=== PATIENT | female | born 1930 | race Caucasian/White ===

== ENCOUNTER 2017-12-23 16:47 | Emergency (ER) | payer MEDICARE, BC ==
[2017-12-23 17:06] VITALS: BP 150/79
--- NOTE | 2017-12-23 17:26 | UC ---
UC General HPI - HPI Summary HPI Summary: elevated blood pressure x 2 day not feeling well, no cough , no nasal congestion , + headaches no n/v/d/c , no urinary sx pt is anxious about the elevation of her bp - History of Current Complaint Chief Complaint: UCGeneralIllness Stated Complaint: HIGH BP,CHILLS Time Seen by Provider: 12/23/17 17:03 Hx Obtained From: Patient Onset/Duration: Gradual Onset, Lasting Days - 2, Still Present Timing: Constant Onset Severity: Moderate Current Severity: Moderate Associated Signs & Symptoms: Positive: Headache, Palpitations, Weakness. Negative: Agitation, Abdominal Pain, Anticoagulation Therapy, Back Pain, Confusion, Cough, Chest Pain, Decreased Responsiveness, Dizziness, Diarrhea, Dysuria, Decreased Oral Intake, Diaphoresis, Edema, Fever, Hematemesis, Hemoptysis, Immunocompromised, In-Dwelling Medication Device, Melena, Nausea, Recent Medication Changes, Syncope, SOB, Trauma, Vomiting, Wheezing - Allergy/Home Medications Home Medications: Home Medications Aspirin TAB* [Aspirin 325 MG TAB*] 325 mg PO ONCE 12/23/17 [History Confirmed ] Aspirin [Aspirin 81 MG TAB] 81 mg PO BEDTIME 12/23/17 [History Confirmed ] Atenolol TAB* [Tenormin TAB* 25 MG] 12.5 mg PO BEDTIME 12/23/17 [History Confirmed 12/23/17] Losartan TAB* [Cozaar TAB*] 50 mg PO DAILY 12/23/17 [History Confirmed 12/23/17] Sertraline* [Zoloft*] 25 mg PO DAILY 12/23/17 [History Confirmed 12/23/17] Simvastatin [Zocor 5 MG-] 5 mg PO BEDTIME 12/23/17 [History Confirmed 12/23/17] amLODIPine TAB* [Norvasc 5 mg TAB*] 5 mg PO DAILY 12/23/17 [History Confirmed ] PMH/Surg Hx/FS Hx/Imm Hx Cardiovascular History: Cardiac Disease, Hypertension Psychological History: Anxiety - Surgical History Surgical History: Yes Surgery Procedure, Year, and Place: tonsillectomy. x2 - Social History Alcohol Use: Occasionally Substance Use Type: None Smoking Status (MU): Former Smoker When Did the Patient Quit Smoking/Using Tobacco: 50+ years ago - Immunization History Most Recent Influenza Vaccination: [id number] Review of Systems Constitutional: Negative Skin: Negative Eyes: Negative ENT: Negative Respiratory: Negative Cardiovascular: Negative Is Patient Immunocompromised?: No All Other Systems Reviewed And Are Negative: Yes Physical Exam Triage Information Reviewed: Yes Appearance: Well-Appearing, No Pain Distress, Well-Nourished Vital Signs: Initial Vital Signs Temp 97.9 F 12/23/17 16:51 Pulse 72 12/23/17 16:51 Resp 17 12/23/17 16:51 BP 150/79 12/23/17 16:51 Pulse Ox 98 12/23/17 16:51 Vital Signs Reviewed: Yes Eyes: Positive: Conjunctiva Clear ENT: Positive: Normal ENT inspection, Hearing grossly normal, Pharynx normal Neck: Positive: Supple, Nontender, No Lymphadenopathy Respiratory: Positive: Chest non-tender, Lungs clear, Normal breath sounds, No respiratory distress Cardiovascular: Positive: RRR, No Murmur, Pulses Normal Abdominal Exam: Normal Abdomen Description: Positive: Nontender, Soft. Negative: CVA Tenderness (R), CVA Tenderness (L), Distended, Guarding Bowel Sounds: Positive: Present Musculoskeletal: Positive: Strength Intact, ROM Intact, No Edema Neurological: Positive: Alert, Muscle Tone Normal Skin Exam: Normal Course/Dx - Differential Dx - Multi-Symptom Provider Diagnoses: hypertension Discharge - Discharge Plan Condition: Stable Disposition: HOME Patient Education Materials: Hypertension in the Older Adult (ED) Referrals: No Primary Care Phys,NOPCP [Primary Care Provider] - Additional Instructions: elevated blood pressure , may be due to current viral illness cont. with your current medication , follow up with your pcp in one week
== END 2017-12-23 17:26 | disposition home or self-care (01) ==
LOC: UCCORT 16:47
DX: I10 Essential (primary) hypertension (principal); F41.9 Anxiety disorder, unspecified; I51.9 Heart disease, unspecified; Z72.89 Other problems related to lifestyle; Z87.891 Personal history of nicotine dependence
CPT/HCPCS: 93005; 99201; G0463